=== PATIENT | female | born 1965 | race Caucasian/White ===

== ENCOUNTER 2024-01-17 07:46 | Day surgery (SDC) | payer BC ==
[~2024-01-17 07:46] MED LIST: Lactated Ringers 1,000 ML IV SCH
[2024-01-17] MEDS ORDERED: Citric Acid/Sodium Citrate Solution 30 ML Cup ONE (08:58)
[2024-01-17] MEDS ORDERED: Propofol 200 MG/20 ML SDV ONE ×2 (09:24→09:49)
[2024-01-17] MEDS ORDERED: fentaNYL 100 MCG/2 ML SDV ONE (09:24)
== END 2024-01-17 14:10 | disposition home or self-care (01) ==
LOC: VM.SDS 07:46
PROVIDERS: ATTEND Student in an Organized Health Care Education/Training Program
DX: Z12.11 Encounter for screening for malignant neoplasm of colon (principal); D12.0 Benign neoplasm of cecum; D12.2 Benign neoplasm of ascending colon; K29.50 Unspecified chronic gastritis without bleeding; K31.7 Polyp of stomach and duodenum; K21.9 Gastro-esophageal reflux disease without esophagitis; K44.9 Diaphragmatic hernia without obstruction or gangrene; J01.20 Acute ethmoidal sinusitis, unspecified; J45.909 Unspecified asthma, uncomplicated; E78.00 Pure hypercholesterolemia, unspecified; Z79.899 Other long term (current) drug therapy
CPT/HCPCS: 00813; A9270-GY; J2704; J3010; J7120